=== PATIENT | male | born 1950 | race Asian ===

== ENCOUNTER → 2017-08-06 | Outpatient (CLI) | payer MEDICARE, OTHER | END | disposition home or self-care (01) | LOC: ROC 07-12 06:03 | PROVIDERS: ATTEND Radiology Radiation Oncology | DX: C61 Malignant neoplasm of prostate (principal); M19.90 Unspecified osteoarthritis, unspecified site; E11.9 Type 2 diabetes mellitus without complications | CPT/HCPCS: 99204; G0463 ==

== ENCOUNTER → 2017-10-23 | Outpatient (CLI) | payer MEDICARE, OTHER ==
[~2017-10-23] MED LIST: FENTANYL PF 100 MCG/2ML IVPush ONE; LIDOCAINE 1%, 20ML SQ ONE; MIDAZOLAM 1 MG/ML, 5ML IVPush ONE
== END | disposition home or self-care (01) ==
LOC: ROC 11:05
PROVIDERS: ATTEND Radiology Radiation Oncology
DX: Z51.0 Encounter for antineoplastic radiation therapy (principal); C61 Malignant neoplasm of prostate
CPT/HCPCS: 76942; 77332; 99156; A4648; J2250; J3010; J3490

== ENCOUNTER → 2017-10-31 | Outpatient (CLI) | payer MEDICARE, OTHER | END | disposition home or self-care (01) | LOC: CFH 08:11 | PROVIDERS: ATTEND Radiology Radiation Oncology | DX: C61 Malignant neoplasm of prostate (principal); E11.9 Type 2 diabetes mellitus without complications | CPT/HCPCS: 72195 ==

== ENCOUNTER → 2018-02-18 | Outpatient (CLI) | payer MEDICARE, OTHER | LOC: ROC 08:24 | PROVIDERS: ATTEND Radiology Radiation Oncology | DX: Z08 Encounter for follow-up examination after completed treatment for malignant neoplasm (principal); C61 Malignant neoplasm of prostate | CPT/HCPCS: G0463 ==

== ENCOUNTER → 2018-08-19 | Outpatient (CLI) | payer MEDICARE, OTHER | END | disposition home or self-care (01) | LOC: ROC 09:29 | PROVIDERS: ATTEND Radiology Radiation Oncology | DX: C61 Malignant neoplasm of prostate (principal) | CPT/HCPCS: G0463 ==